=== PATIENT | male | born 2005 | race Caucasian/White ===

== ENCOUNTER 2025-07-26 14:18 | Emergency (ER) | payer OTHER ==
[~2025-07-26] VITALS: Ht 177.8 cm; Wt 55.9 kg
[2025-07-26 14:33] VITALS: BP 131/77; PULSE 88; O2SAT 99
[2025-07-26] MEDS ORDERED: ketorolac trometh 15mg/ml vial 15 MG/ML ML IM ONE ×2 (15:20→15:30)
[2025-07-26] MEDS ORDERED: AMOX-117 PO (15:42)
--- NOTE | 2025-07-26 15:43 | Physician Documentation ---
History of Present Illness ~ Chief Complaint: Abscess Stated Complaint: ABSCESS Time Seen by MD: 14:50 Primary Medical Doctor: [facility] Patient is a very pleasant 20-year-old male that presents to the emergency department for evaluation of swelling to his left cheek. Patient is unsure if the swelling is due to biting the inside of his cheek 2 days ago or if it is due to a dental abscess as he does have swelling at the gumline in the area associated with the swelling in the cheek. Patient denies fever chills nausea vomiting diarrhea at this time. Patient reports he did have some draining from the cheek earlier this morning after he got out of the shower. Patient reports he has several dental caries and fractured teeth but has been unable to follow up with a dentist at this time. Tetanus Within 5 Years: No Medication Reconciliation Allergies: Coded Allergies: No Known Allergies (Unverified , 07/26/25) Review of Systems ROS As stated above in the HPI, otherwise all systems are reviewed and negative. Physical Exam Vital Signs: Temperature: 98.5, Source: Oral, Heart Rate: 88, Respiratory Rate: 18, BP: 131/77, Pulse Oximetry: 99, Weight: 55.900 Oxygen Flow Rate: 0 Physical Exam VITALS: Reviewed and as above. GENERAL: Alert, no apparent distress. HEENT: Normocephalic, atraumatic, PERRL, EOMI, dry mucosa, no erythema, swelling noted along the left lower gumline, swelling noted in the left cheek, mild lymphadenopathy noted in the submandibular lymph nodes on the left side. RESPIRATORY: Lungs clear, normal breath sounds, no respiratory distress. MUSCULOSKELETAL No deformities, no edema SKIN: Warm and dry, no rash NEURO: Oriented x4, No motor or sensory deficit PSYCH: Normal mood and affect, no agitation Progress Results/Orders Results/Orders Completed Orders - DANIELLA MCGHEE MEDART OPERATOR Acetaminophen 325mg Tablet (Tylenol Tabl (07/26/25 15:20) Ketorolac Trometh 15mg/Ml Vial (Toradol (07/26/25 15:30) Ketorolac Trometh 30mg/Ml Vial (Toradol (07/26/25 15:30) Vital Signs 07/26/25 14:33 Temp 98.5 Pulse 88 Resp 18 B/P (MAP) 131/77 Pulse Ox 99 O2 Flow Rate 0 Medical Decision Making Additional information obtaine: other Findings Chief Complaint: Cheek pain and swelling following self-inflicted cheek bite approximately 2 days ago, with concern for dental abscess. History of Present Illness: 20-year-old male presents with cheek pain and localized swelling that began approximately 2 days ago after biting his cheek. Patient reports history of dental caries in the same area and is uncertain whether symptoms are related to the traumatic bite injury versus underlying dental pathology. Patient denies fever, malaise, difficulty swallowing, difficulty breathing, or trismus. No evidence of fascial space involvement or lymphadenopathy on examination. Medical Decision-Making: Diagnosis: Suspected localized acute apical abscess versus traumatic bite wound with secondary infection. The clinical presentation is consistent with either pulp necrosis with localized acute apical abscess (characterized by spontaneous pain, localized swelling, and purulent material without evidence of fascial space involvement, fever, or malaise) or polymicrobial infection secondary to cheek bite injury. [1-3] Risk Stratification: Patient is immunocompetent without systemic signs of infection. Vital signs are stable. No evidence of airway compromise, fascial space involvement, or deeper space infection. This presentation does not meet criteria for emergent surgical evaluation. [1] Treatment Rationale: Antibiotic Therapy: Amoxicillin-clavulanate was selected as first-line therapy given the dual concern for odontogenic infection and bite wound contamination. This agent provides appropriate coverage for common odontogenic pathogens (including anaerobes) and polymicrobial bite wound stone (including Pasteurella multocida, Staphylococcus aureus, viridans streptococci, Eikenella corrodens, and oral anaerobes). First dose administered in the emergency department prior to discharge. Prescribed course: 500/125 mg three times daily for 3-7 days, with instructions to discontinue 24 hours after symptom resolution. [1-3] Pain Management: Multimodal analgesia provided with acetaminophen 1000 mg and ketorolac 30 mg administered in the emergency department. NSAIDs combined with acetaminophen are first-line therapy for acute dental pain and are preferred over opioid medications. Patient counseled to continue ibuprofen 400-600 mg combined with acetaminophen 1000 mg as needed for pain control at home, with realistic expectations that some pain is expected and analgesics should make pain manageable. [4-6] Definitive Care: Patient requires urgent dental evaluation for definitive conservative dental treatment (root canal therapy, incision and drainage, or extraction as indicated). Wound irrigation and debridement are at least equally important as antibiotics for prevention of infection progression in bite wounds. [1-2][6] Disposition and Follow-Up: Urgent dental referral provided for evaluation within 1-2 days for definitive conservative dental treatment Primary care follow-up arranged Patient instructed to return to emergency department immediately if condition deteriorates, including development of fever, worsening swelling (particularly involving neck or floor of mouth), difficulty swallowing, difficulty breathing, visual changes, or progression of symptoms despite antibiotic therapy [1][6] Patient counseled on signs of antibiotic failure and adverse drug events Reevaluation recommended within 3 days if symptoms do not improve [1] Patient Education: Patient counseled that definitive dental treatment should not be delayed and that antibiotics alone are insufficient without addressing the underlying source of infection. Patient instructed to call if dental referral within 1-2 days is not possible. [1] References Differential Dx:Considerations: Include: Abscess, Bacteremia, Cellulitis, Erysipelas, Felon, Gas gangrene, Hidrademitis suppurativa, Impetigo, Lymphangitis, Osteromyelitis, Paronychia, Septicemia, Other Departure Disposition: 01 HOME / SELF CARE / HOMELESS Impression: Primary Impression: Abscess Condition: Stable Discharge Instructions: Dental Abscess, [id number], Skin Abscess, Easy -to-Read Additional Instructions: Your Diagnosis You were treated today for cheek pain and swelling that may be related to a dental abscess (tooth infection) or a bite injury to your cheek. You received antibiotics and pain medication in the emergency department. Medications Antibiotic (Augmentin): Take Augmentin 500/125 mg three times daily with food Continue taking this medication for 3-7 days Stop the antibiotic 24 hours after your symptoms go away, even if you have pills left [1] Take all doses as prescribed - do not skip doses If you develop severe diarrhea (3 or more loose bowel movements per day), fever, or abdominal cramping while taking this medication, call your primary care provider immediately Pain Management: Take ibuprofen 400-600 mg combined with acetaminophen (Tylenol) 1000 mg as needed for pain [1][3] You can take these medications together - they work better in combination than either one alone Do not exceed the maximum daily doses (ibuprofen: 2400 mg per day; acetaminophen: 4000 mg per day) You should expect some pain - the goal is to make your pain manageable, not to eliminate it completely [3] Take pain medication with food to reduce stomach upset Follow-Up Care URGENT - Dental Appointment Required: You must see a dentist within 1-2 days for definitive treatment [1-2] Antibiotics alone will not cure a dental abscess - you need dental treatment (such as root canal therapy, drainage, or tooth extraction) [1-2] If you cannot get a dental appointment within 1-2 days, call the emergency department for guidance [1] Primary Care Follow-Up: Schedule an appointment with your primary care provider as discussed Warning Signs - Return to the Emergency Department Immediately If You Experience: Worsening swelling, especially if it spreads to your neck, under your jaw, or around your eye [1-2] Difficulty swallowing or breathing [1-2] Difficulty opening your mouth Fever (temperature above 100.4F or 38C) [1] Vision changes [2] Severe pain that is not controlled with the prescribed pain medications No improvement in your symptoms after 3 days of antibiotic treatment [1] Symptoms that get worse instead of better [1] General Care Instructions Drink plenty of fluids Rinse your mouth gently with warm salt water (1/2 teaspoon salt in 8 ounces of warm water) several times daily to keep the area clean Avoid chewing on the affected side Maintain good oral hygiene by brushing and flossing gently Get adequate rest to help your body heal Important Reminders Dental treatment should not be delayed - antibiotics are only a temporary measure [1-2] If you have trouble getting a dental appointment or if your condition worsens, call your healthcare provider or return to the emergency department immediately [1] Keep all follow-up appointments as scheduled Return to the emergency department or follow up with the primary care provider if you have no improvement within 24 hours. Again we are unclear if this is a dental abscess or a skin abscess of the cheek as both are probabilities due to dental caries and fractured teeth and a biting or cheek in the same area 2 days ago. If you develop fever chills nausea vomiting diarrhea please return to the emergency department immediately if you develop any difficulty swallowing any airway complications significant increase in swelling please return to the emergency department immediately. Please follow up with the primary care provider. Please follow up with a dentist as soon as you are able. Referrals: NO PRIMARY CARE PROVIDER (PCP) Prescriptions Amox Tr/Potassium Clavulanate (Augmentin 875-125 Tablet) 1 Each Tablet 1 TAB PO Q12H for 10 Days, #20 TAB Prov: DANIELLA MCGHEE 07/26/25 Education Educated: Patient Educated regarding: diagnosis, treatment, need for follow up Signature Scribe Signature: A Attestation: Scribed for Daniella Mcghee by ANGÉLICA Esp[place] . 07/26/25 15:43 DANIELLA MCGHEE Jul 26, 2025 15:43
[2025-07-26 15:58] VITALS: RESP 16
[2025-07-26] MEDS: ketorolac trometh 30MG/ML vial 30 MG/ML VIAL IM ONE (15:58)
[2025-07-26] MEDS: amox tr/potassium clavulanate 875/125mg TAB PO ONE (15:59)
[2025-07-26 16:24] VITALS: TEMP 98.5
== END 2025-07-26 16:25 | disposition home or self-care (01) ==
LOC: ER 14:19
DX: K04.7 Periapical abscess without sinus (principal)
CPT/HCPCS: 96372; 99283; J1885